=== PATIENT | female | born 1955 | race Caucasian/White ===

== ENCOUNTER 2019-06-26 09:36 | Outpatient (CLI) | payer OTHER, SELFPAY ==
--- NOTE | ~2019-06-26 | MM_ITS ---
EXAMINATION: MM screening [facility] BI w joceline HISTORY: Screening mammogram TECHNIQUE: Craniocaudal and mediolateral oblique 3-D tomosynthesis images were obtained and synthetic 2-D images were generated. CAD analysis was submitted and interpreted. COMPARISON: Comparison to multiple prior studies sequentially, with oldest reviewed study dated 12/26. BREAST PARENCHYMAL COMPOSITION: There are scattered areas of fibroglandular density. FINDINGS: There is no evidence of suspicious mass, calcification, or architectural distortion to sugg est malignancy in either breast. There has been no suspicious interval change. IMPRESSION: 1. No mammographic evidence of malignancy. 2. Recommend routine screening mammography in one year. BI-RADS Category 1: Negative Reviewed, dictated and finalized at location A.
== END 2019-06-26 09:37 | disposition home or self-care (01) ==
LOC: ANHIMG 09:38
PROVIDERS: PCP Emergency Medicine; Visit Provider Nurse Practitioner Family
DX: Z12.31 Encounter for screening mammogram for malignant neoplasm of breast (principal)
CPT/HCPCS: 77063; 77067

== ENCOUNTER → 2020-05-28 09:30 | Outpatient (CLI) | payer OTHER, SELFPAY ==
--- NOTE | ~2020-05-28 | CT_ITS ---
EXAMINATION: CT lung screening DATE: 05/28/2020 09:44 INDICATION: Personal history of nicotine dependence, prior smoker with 48 pack year history TECHNIQUE: Computed tomography (CT) of the chest was performed without intravenous contrast. The dose -length product (DLP) was 95.72 mGy-cm. Automated exposure control and iterative reconstruction techn [employer] were employed. COMPARISON: 05/09/2018 FINDINGS: Previously described clustered nodules of the left upper lobe have essentially resolved, co nsistent with infection/inflammation. There are peripheral predominantly groundglass opacities throug hout the lungs. There is no pleural effusion or pneumothorax. No pathologically enlarged thoracic lym ph nodes are identified. The heart size is normal. There is a stable 2 cm mass in the right adrenal g land, likely an adenoma. There is mild thoracic spondylosis. IMPRESSION: 1. Lung-RADS category 2S: Benign appearance or behavior. Continue annual screening with noncontrast l ow-dose chest CT in 12 months. 2. Peripheral predominantly groundglass opacities of the lungs with an appearance and distribution ty pical for COVID 19 pneumonia. Recommend clinical correlation. Reviewed, dictated and finalized at location A. CLEANER IMPRESSION: 1. Lung-RADS category 2S: Benign appearance or behavior. Continue annual screen ing with noncontrast low-dose chest CT in 12 months. 2. Peripheral predominantly groundglass opacities of the lungs with an appearan ce and distribution typical for COVID 19 pneumonia. Recommend clinical correlat ion.
== END ==
PROVIDERS: PCP Student in an Organized Health Care Education/Training Program; Visit Provider Student in an Organized Health Care Education/Training Program
DX: Z12.2 Encounter for screening for malignant neoplasm of respiratory organs (principal); F17.211 Nicotine dependence, cigarettes, in remission
CPT/HCPCS: 71271

== ENCOUNTER 2020-07-08 08:53 | Outpatient (CLI) | payer OTHER, SELFPAY ==
--- NOTE | ~2020-07-08 | MM_ITS ---
EXAMINATION: MM screening [facility] BI w joceline HISTORY: Screening mammogram TECHNIQUE: Craniocaudal and mediolateral oblique 3-D tomosynthesis images were obtained and synthetic 2-D images were generated. CAD analysis was submitted and interpreted. COMPARISON: 06/26/2019, 11/27/2017, 02/05/2016, 01/30/2015 BREAST PARENCHYMAL COMPOSITION: There are scattered areas of fibroglandular density. FINDINGS: A stable mass in the upper outer quadrant of the left breast is considered benign given the lack of interval change. There is no evidence of suspicious mass, calcification, or architectural di stortion to suggest malignancy in either breast. There has been no suspicious interval change. IMPRESSION: 1. No mammographic evidence of malignancy. 2. Recommend routine screening mammography in one year. BI-RADS Category 2: Benign finding(s). Reviewed, dictated and finalized at location A.
== END 2020-07-08 08:54 | disposition home or self-care (01) ==
LOC: ANHIMG 08:56
PROVIDERS: PCP Student in an Organized Health Care Education/Training Program; Visit Provider Student in an Organized Health Care Education/Training Program
DX: Z12.31 Encounter for screening mammogram for malignant neoplasm of breast (principal)
CPT/HCPCS: 77063; 77067

== ENCOUNTER 2020-07-30 09:06 | Outpatient (CLI) | payer OTHER, SELFPAY ==
--- NOTE | ~2020-07-30 | DEXA_ITS ---
Bone Density Report Name: Yasmin Cabral Age: 65 Sex: Female Ethnicity: White Date of : 1955 Indication: osteopenia; hysterectomy; Referring Provider: Shadi, Raul Study: Bone densitometry was performed. Exam Date: July 30, 2020 Accession number: [id number] Bone Density: Region BMD T-score Z-score Classification AP Spine (L1-L4) 0.942 -1.0 0.8 Normal Femoral Neck (Left) 0.623 -2.0 -0.5 Osteopenia Total Hip (Left) 0.798 -1.2 0.1 Osteopenia Total Hip Bilateral Avg 0.775 -1.4 -0.1 Osteopenia Femoral Neck (Right) 0.617 -2.1 -0.6 Osteopenia Total Hip (Right) 0.752 -1.6 -0.3 Osteopenia World Health Organization criteria for BMD impression classify patients as: Normal (T-score at or above -1.0), Osteopenia (T-score between -1.0 and -2.5), or Osteoporosis (T-score at or below -2.5). 10-year Fracture Risk(1): Major Osteoporotic Fracture 11% Hip Fracture 1.6% Reported Risk Factors: [place] (), Neck BMD=0.617, BMI=28.6 (1) FRAX(R) Version 3.08. Fracture probability calculated for an untreated patient. Fracture probability may be lower if the patient has received treatment. Previous Exams: Region Exam Age BMD T-score BMD Change BMD Change Date g/cm2 vs Baseline vs Previous AP Spine(L1-L4) 07/30/2020 65 0.942 -1.0 0.003(0.3%)# 0.031(3.4%)* 11/27/2017 62 0.911 -1.2 -0.028(-3.0%)# 0.068(8.0%)* 01/30/2015 59 0.843 -1.9 -0.095(-10.2%) -0.050(-5.6%)# 03/25/2009 53 0.893 -1.4 -0.045(-4.8%)* -0.045(-4.8%)* 01/31/2007 51 0.938 -1.0 Total Hip(Left) 07/30/2020 65 0.798 -1.2 -0.053(-6.2%)# -0.033(-3.9%)* 11/27/2017 62 0.830 -0.9 -0.020(-2.4%)# 0.064(8.3%)* 01/30/2015 59 0.766 -1.4 -0.084(-9.9%)# -0.028(-3.5%)# 03/25/2009 53 0.794 -1.2 -0.056(-6.6%)* -0.056(-6.6%)* 01/31/2007 51 0.850 -0.8 Total Hip(Right) 07/30/2020 65 0.752 -1.6 -0.019(-2.5%)# -0.016(-2.1%) 11/27/2017 62 0.768 -1.4 -0.003(-0.4%)# 0.066(9.4%)* 01/30/2015 59 0.702 -2.0 -0.069(-8.9%)# -0.049(-6.5%)# 03/25/2009 53 0.751 -1.6 -0.020(-2.6%) -0.020(-2.6%) 01/31/2007 51 0.771 -1.4 *Denotes significance at 95% confidence level, LSC for AP Spine = 0.022 g/cm2, LSC for Total Hip = 0.027 g/cm2 Clinical Information Provided by Patient: Has the following medical conditions: Hysterectomy Patient maximum height was 63 Menopause Age: 50 No regular weight bearing exercise Drinks caffeinated beverages Onset of menses at age 12 Number of
== END 2020-07-30 09:07 | disposition home or self-care (01) ==
LOC: ANHIMG 09:08
PROVIDERS: PCP Student in an Organized Health Care Education/Training Program; Visit Provider Student in an Organized Health Care Education/Training Program
DX: Z78.0 Asymptomatic menopausal state (principal); M85.851 Other specified disorders of bone density and structure, right thigh; M85.852 Other specified disorders of bone density and structure, left thigh
CPT/HCPCS: 77080

== ENCOUNTER → 2021-08-07 10:51 | Outpatient (CLI) | payer OTHER, SELFPAY ==
--- NOTE | ~2021-08-07 | CT_ITS ---
EXAMINATION: CT lung screening DATE: 08/07/2021 11:07 INDICATION: Personal history of nicotine dependence, prior smoker with 40 pack year history TECHNIQUE: Computed tomography (CT) of the chest was performed without intravenous contrast. The dose -length product (DLP) was 114.32 mGy-cm. Automated exposure control and iterative reconstruction tech [employer] were employed. COMPARISON: 05/28/2020 FINDINGS: There are a few tiny scattered pulmonary nodules measuring up to 2 mm. Previously described groundglass opacities have resolved. The lungs are free of focal airspace opacities. There is no ple ural effusion or pneumothorax. No pathologically enlarged thoracic lymph nodes are identified. The he art size is normal. A stable 2 cm mass of the right adrenal gland is consistent with an adenoma. Ther e is mild thoracic spondylosis. IMPRESSION: 1. Lung-RADS category 2: Benign appearance or behavior. Continue annual screening with noncontrast lo w-dose chest CT in 12 months. Reviewed, dictated and finalized at location F. IMPRESSION: 1. Lung-RADS category 2: Benign appearance or behavior. Continue annual screeni ng with noncontrast low-dose chest CT in 12 months.
== END ==
PROVIDERS: PCP Student in an Organized Health Care Education/Training Program; Visit Provider Student in an Organized Health Care Education/Training Program
DX: Z12.2 Encounter for screening for malignant neoplasm of respiratory organs (principal); F17.210 Nicotine dependence, cigarettes, uncomplicated
CPT/HCPCS: 71271

== ENCOUNTER 2021-09-16 10:08 | Outpatient (CLI) | payer OTHER, SELFPAY ==
--- NOTE | ~2021-09-16 | MM_ITS ---
EXAMINATION: MM screening [facility] BI w joceline HISTORY: Screening mammogram TECHNIQUE: Craniocaudal and mediolateral oblique 3-D tomosynthesis images were obtained and synthetic 2-D images were generated. CAD analysis was submitted and interpreted. COMPARISON: 07/08/2020, 06/26/2019, 11/27/2017 BREAST PARENCHYMAL COMPOSITION: There are scattered areas of fibroglandular density. FINDINGS: A stable, benign left breast mass is again noted. There is no suspicious mass, calcificatio n, or architectural distortion to suggest malignancy in either breast. There has been no suspicious i nterval change. IMPRESSION: 1. No mammographic evidence of malignancy. 2. Recommend routine screening mammography in one year. BI-RADS Category 2: Benign finding(s). Reviewed, dictated and finalized at location A.
== END 2021-09-16 10:09 | disposition home or self-care (01) ==
PROVIDERS: PCP Student in an Organized Health Care Education/Training Program; Visit Provider Student in an Organized Health Care Education/Training Program
DX: Z12.31 Encounter for screening mammogram for malignant neoplasm of breast (principal)
CPT/HCPCS: 77063; 77067

== ENCOUNTER → 2022-08-10 11:18 | Outpatient (CLI) | payer OTHER, SELFPAY ==
--- NOTE | ~2022-08-10 | CT_ITS ---
CT Scan of the Chest without Contrast: Clinical Indication: Lung cancer screening, nicotine dependence Technique: Contiguous sections were acquired throughout the chest without intravenous contrast. Dose reduction technique was used on this scan by utilizing automated exposure control and iterative recon struction technique. The dose-length product (DLP) was 76.26 mGy-cm. COMPARISON: 07/30/2021, 05/28/2020, 05/09/2018 Findings: There is no evidence of any significant mediastinal, hilar or axillary lymphadenopathy. The mediastin al soft tissues appear normal. There is no evidence of pleural or pericardial effusion. Stable 3 mm left upper lobe pulmonary nodule noted (axial image 52). No other significant pulmonary n odule identified. Images through the upper abdomen reveal stable low-density right adrenal nodule, consistent with radha hillary, measuring 2.3 cm in diameter.. Impression: Lung RADS 2: Benign appearance. 12 month follow-up screening CT advised. Stable right adrenal adenoma. Reviewed, dictated and finalized at location . Impression: Lung RADS 2: Benign appearance. 12 month follow-up screening CT advised. Stable right adrenal adenoma.
== END ==
PROVIDERS: PCP Student in an Organized Health Care Education/Training Program; Visit Provider Student in an Organized Health Care Education/Training Program
DX: D35.01 Benign neoplasm of right adrenal gland (principal); F17.211 Nicotine dependence, cigarettes, in remission; Z12.2 Encounter for screening for malignant neoplasm of respiratory organs
CPT/HCPCS: 71271

== ENCOUNTER 2023-01-01 10:23 | Outpatient (CLI) | payer OTHER, SELFPAY ==
--- NOTE | ~2023-01-01 | MM_ITS ---
EXAMINATION: MM screening [facility] BI w joceline HISTORY: Screening TECHNIQUE: Craniocaudal and mediolateral oblique 3-D tomosynthesis images were obtained and synthetic 2-D images were generated. CAD analysis was submitted and interpreted. COMPARISON: Comparison to multiple prior studies sequentially, with oldest reviewed study dated 01/11. BREAST PARENCHYMAL COMPOSITION: Breast composed of scattered areas of fibroglandular density FINDINGS: There is no evidence of suspicious mass, calcification, or architectural distortion to sugg est malignancy in either breast. There has been no suspicious interval change. IMPRESSION: 1. No mammographic evidence of malignancy. 2. Recommend routine screening mammography in one year. BI-RADS Category 1: Negative Reviewed, dictated and finalized at location A.
--- NOTE | ~2023-01-01 | DEXA_ITS ---
Bone Density Report Name: ALEX VARGAS Age: 67 Sex: Female Ethnicity: White Date of : 1955 Indication: osteopenia; height loss; hysterectomy; postmenopausal Referring Provider: NORM, DARA Study: Bone densitometry was performed. Exam Date: January 01, 2023 Accession number: [id number] Bone Density: Region BMD T-score Z-score Classification AP Spine(L1-L4) 0.966 -0.7 1.2 Normal Femoral Neck (Left) 0.670 -1.6 0.0 Osteopenia Total Hip (Left) 0.814 -1.1 0.3 Osteopenia Femoral Neck (Right) 0.605 -2.2 -0.5 Osteopenia Total Hip (Right) 0.750 -1.6 -0.2 Osteopenia Total Hip Mean 0.782 -1.4 0.1 Osteopenia World Health Organization criteria for BMD impression classify patients as: Normal (T-score at or above -1.0), Osteopenia (T-score between -1.0 and -2.5), or Osteoporosis (T-score at or below -2.5). 10-year Fracture Risk(1): Major Osteoporotic Fracture 12% Hip Fracture 2.2% Reported Risk Factors: [place] (), Neck BMD=0.605, BMI=25.5 (1) FRAX(R) Version 3.08. Fracture probability calculated for an untreated patient. Fracture probability may be lower if the patient has received treatment. Previous Exams: Region Exam Age BMD T-score BMD Change BMD Change Date g/cm2 vs Baseline vs Previous AP Spine (L1-L4) 01/01/2023 67 0.966 -0.7 0.123 (14.6%)* 0.025 (2.6%)* 07/30/2020 65 0.942 -1.0 0.099 (11.7%)* 0.031 (3.4%)* 11/27/2017 62 0.911 -1.2 0.068 (8.0%)* 0.068 (8.0%)* 01/30/2015 59 0.843 -1.9 Total Hip(Left) 01/01/2023 67 0.814 -1.1 0.047 (6.2%)* 0.016 (2.0%) 07/30/2020 65 0.798 -1.2 0.031 (4.1%)* -0.033 (-3.9%) 11/27/2017 62 0.830 -0.9 0.064 (8.3%)* 0.064 (8.3%)* 01/30/2015 59 0.766 -1.4 Total Hip(Right) 01/01/2023 67 0.750 -1.6 0.048 (6.8%)* -0.002 (-0.3%) 07/30/2020 65 0.752 -1.6 0.050 (7.1%)* -0.016 (-2.1%) 11/27/2017 62 0.768 -1.4 0.066 (9.4%)* 0.066 (9.4%)* 01/30/2015 59 0.702 -2.0 *Denotes significance at 95% confidence level, LSC for AP Spine = 0.022 g/cm2, LSC for Total Hip = 0.027 g/cm2 Clinical Information Provided by Patient: Has used the following medications: Vitamin D Has the following medical conditions: Hysterectomy Patient maximum height was 62 Menopause Age: 50 No regular weight bearing exercise Does not regularly consume dairy products Onset of menses at age 13 Number of children 4 Impress
== END 2023-01-01 10:24 | disposition home or self-care (01) ==
LOC: ANHIMG 10:27
PROVIDERS: PCP Student in an Organized Health Care Education/Training Program; Visit Provider Student in an Organized Health Care Education/Training Program
DX: Z12.31 Encounter for screening mammogram for malignant neoplasm of breast (principal); Z78.0 Asymptomatic menopausal state; M85.852 Other specified disorders of bone density and structure, left thigh; M85.851 Other specified disorders of bone density and structure, right thigh
CPT/HCPCS: 77063; 77067; 77080

== ENCOUNTER 2023-08-19 09:46 | Outpatient (CLI) | payer OTHER, SELFPAY ==
--- NOTE | ~2023-08-19 | CT_ITS ---
CT Scan of the Chest without Contrast: Clinical Indication: Lung cancer screening, nicotine dependence Technique: Contiguous sections were acquired throughout the chest without intravenous contrast. Dose reduction technique was used on this scan by utilizing automated exposure control and iterative recon struction technique. The dose-length product (DLP) was 92.85 mGy-cm. COMPARISON: 08/10/2022 Findings: There is no evidence of any significant mediastinal, hilar or axillary lymphadenopathy. The mediastin al soft tissues appear normal. There is no evidence of pleural or pericardial effusion. Stable 3 mm left upper lobe pulmonary nodule noted (axial image 52). Images through the upper abdomen reveal stable 2.4 cm low-density right adrenal nodule, compatible wi th adenoma.. Impression: Lung RADS 2: Benign appearance. 12 month follow-up screening CT advised. Reviewed, dictated and finalized at location . Impression: Lung RADS 2: Benign appearance. 12 month follow-up screening CT advised.
== END 2023-08-19 09:47 ==
LOC: MICIMG 09:47
PROVIDERS: PCP Student in an Organized Health Care Education/Training Program; Visit Provider Student in an Organized Health Care Education/Training Program
DX: Z12.2 Encounter for screening for malignant neoplasm of respiratory organs (principal); Z87.891 Personal history of nicotine dependence
CPT/HCPCS: 71271

== ENCOUNTER 2024-10-02 10:08 | Outpatient (CLI) | payer OTHER, SELFPAY ==
--- NOTE | ~2024-10-02 | CT_ITS ---
CT Scan of the Chest without Contrast: Clinical Indication: Lung cancer screening, nicotine dependence Technique: Contiguous sections were acquired throughout the chest without intravenous contrast. Dose reduction technique was used on this scan by utilizing automated exposure control and iterative recon struction technique. The dose-length product (DLP) was 100.42 mGy-cm. COMPARISON: 08/19/2023 Findings: There is no evidence of any significant mediastinal, hilar or axillary lymphadenopathy. The mediastin al soft tissues appear normal. There is no evidence of pleural or pericardial effusion. Stable 5 mm left upper lobe pulmonary nodule. Images through the upper abdomen reveal stable large right adrenal nodule, compatible with adenoma. Impression: Lung RADS 2: Benign appearance. 12 month follow-up screening CT advised. Reviewed, dictated and finalized at location . Impression: Lung RADS 2: Benign appearance. 12 month follow-up screening CT advised.
== END 2024-10-02 10:09 | disposition home or self-care (01) ==
LOC: MICIMG 10:09
PROVIDERS: PCP Obstetrics & Gynecology Gynecology; Visit Provider Student in an Organized Health Care Education/Training Program
DX: Z12.2 Encounter for screening for malignant neoplasm of respiratory organs (principal); F17.210 Nicotine dependence, cigarettes, uncomplicated; Z12.31 Encounter for screening mammogram for malignant neoplasm of breast
CPT/HCPCS: 71271

== ENCOUNTER 2025-03-22 15:12 | Outpatient (CLI) | payer OTHER, SELFPAY ==
--- NOTE | ~2025-03-22 | MM_ITS ---
EXAMINATION: MM screening soha BI w joceline HISTORY: Screening. TECHNIQUE: Craniocaudal and mediolateral oblique 3-D tomosynthesis images were obtained and synthetic 2-D images were generated. CAD analysis was submitted and interpreted. COMPARISON: 2022, 2020, and 2017 BREAST PARENCHYMAL COMPOSITION: Not Dense: There are scattered areas of fibroglandular FINDINGS: No suspicious masses are seen. There are no suspicious calcifications. No unexplained architectural distortion is seen. There are no skin or nipple abnormalities identified. There is no adenopathy seen on the images submitted. IMPRESSION: No mammographic evidence to suggest malignancy is seen. The patient may return to screening mammography as per ACR guidelines. BI-RADS 1 - Negative. Reviewed, dictated and finalized at location C. [facility] RECOVERY OPERATOR
--- OUTSIDE RECORDS SUMMARY | 2025-03-22 18:12 | XMS_ITS | Clinical Summary ---
Author Organization [facility] Address [address] [place] [address] Care Team Providers Care Court Reporter Name Role Phone Gail Sharpe RN Unavailable Unavailable Source Comments [facility],non-owned Affiliates and Associated Physician Practices is amultiple site organization consisting of ambulatory clinics and hospital sitesin [place], [place], [place] and [place]. This disclosure is being madepursuant to the Care Everywhere program and may not contain all information available regarding this patient. Last updated 17.[facility] [employer] Allergies Active Allergy Reactions Criticality Noted Date Comments Nitrofurantoin Rash,Fever,Headache, Othe r Medium 01/15/2017 Other reaction(s): Headache, COFFMAN, fever Sulfa Drugs Rash Medium 01/15/2017 Medications * Be aware that medications may not be up to date on this document. Alwaysverify current medications with the patient. potassium chloride (KLOR-CON) 20 MEQ tablet Take 20 mEq by mouth once daily Active atenolol-chlort halidone (TENORETIC 50) 50-25 MG tablet Take 1 tablet by mouth once daily Active vitamin D3-cholecalcife rol (CHOLECACIFEROL ) 1000 UNITS tabletIndicatio ns:three times monthly Take 50,000 Units by mouth every 30 days Reasons: three times monthly Active alendronate (FOSAMAX) 70 MG tablet Take 70 mg by mouth every 7 days before meal Take in morning with full glass of water on empty stomach and remain upright for 30 min Active oxyCODONE-aceta minophen (PERCOCET) 5-325 MG tablet Take 1 tablet by mouth every 6 hours as needed 45 tablet 7 Active Additional Information Patient not taking.Reported on 11/08/2017 docusate sodium (COLACE) 100 MG capsule Take 1 capsule by mouth 2 times daily 28 capsule 7 Active Additional Information Patient not taking.Reported on 11/08/2017 polyethylene glycol 3350 (MIRALAX) packet Take 17 g by mouth once daily as needed for Constipation 14 packet 7 Active Additional Information Patient not taking.Reported on 11/08/2017 ibuprofen (MOTRIN) 600 MG tablet Take 1 tablet by mouth every 6 hours as needed for Pain 60 tablet 7 Active Additional Information Patient not taking.Reported on 11/08/2017 vitamin D (CHOLECACIFEROL ) 5000 UNITS capsule Take by mouth. 7 Active Potassium Chloride (KLOR-CON) 25 MEQ Take by mouth. 7 Active atenolol-chlort halidone (TENORETIC 50) 50-25 MG tablet Active Ergocalciferol (VITAMIN D2) 2000 UNITS Take 5,000 Units by mouth. 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 Gender Identity Female 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[employer] Sexual Orientation Not on file Last Filed Vital Signs Vital Sign Reading Time Taken Comments Blood Pressure 120/78 11/08/2017 9:28 AM CDT Pulse 79 03/26/2017 1:40 PM [employer] Temperature 36.7 C (98.1 F) 03/26/2017 1:40 PM [employer] Respiratory Rate 16 03/26/2017 1:40 PM [employer] Oxygen Saturation 96% 03/26/2017 1:40 PM [employer]ARM[employer] Inhaled Oxygen Concentration - - Weight 66.6 kg (146 lb 12.8 oz) 11/08/2017 9:28 AM CDT Height 157.5 cm (5' 2) 11/08/2017 9:28 AM CDT Body Mass Index 26.85 11/08/2017 9:28 AM CDT Plan of Treatment Health Maintenance Due Date Last Done Comments BONE DENSITY TESTING 1955 COLOGUARD (AGES 45-75) - COL ON CA SCREENING 1955 COLON MONITORING 1955 COLONOSCOPY - COLON CA SCREENING 1955 CT COLONOGRAPHY - COLON CA SCREENING 1955 Colorectal Cancer Screening 1955 FIT - COLON CA SCREENING 1955 FLEX SIG - COLON CA SCREENING 1955 MEDICARE AWV 12 MONTHS 1955 HEPATITIS C SCREENING 03/26/1973 DTAP/TDAP/TD VACCINES (1 - Tdap) 1974 PNEUMOCOCCAL VACCINE 50+ (1 of 2 - PCV) 1974 ZOSTER VACCINE (1 of 2) 2005 SCREENING FOR DIABETES 11/08/2017 DEPRESSION SCREENING 04/12/2024 COVID-19 VACCINE (3 - 2024-2 6 season) 2024 05/04/2020, 04/13/2020 INFLUENZA VACCINE (#1) 2024 MAMMOGRAM 01/01/2025 01/01/2023 LIPID TESTING 07/25/2028 07/26/2023, 07/21/2022 Respiratory Syncytial Virus (RSV) Vaccine Pt: or over 60 yrs (1 - 1-dose 75+ series) 2030 HEPATITIS B VACCINE Aged Out No longe r eligible based on patient's age to complete this topic HIB VACCINE Aged Out No longer eligi ble based on patient's age to complete this topic HPV VACCINE Aged Out No longer eligi ble based on patient's age to complete this topic MENINGOCOCCAL (Group B) VACCINE SHARED DECISION-MAKING Aged Out No longer eligible based on patient's age to complete this topic MENINGOCOCCAL GROUPS A/C/Y/W VACCINE Aged Out No longer eligible b ased on patient's age to complete this topic Medical Devices Implanted Type Area Brake Tester Device Identifier Shelf Expiration Date Model / Serial / Lot Mesh Srg Upsylon 35.4cm [id number] 2.8sq Implanted:Qty: 1 on 03/25/2017 by Rita Cole MD at [facility] N/A: [facility] 06/09/2019 [id number] / / [id number] Insurance [facility] MEDICARE SELF PAY NO INSURANCE Member Subscriber Plan / Payer (Ef fective for All Dates) Name:Alex Cabral Natalie Member ID:Not on file Relation to Subscriber:Not on file Name:ALEX CABRAL Natalie Subscriber ID:Not on file (Home) Address: [address] [place] [address] Payer ID:Not on file Group ID:Not on file Type:Self Pay Address: [place], [place] [facility] Advance Directives * Full Code (Latest Code Status on File) Date Activated Date Inactivated Comments 03/25/2017 4:10 PM 03/26/2017 6:[address] Reporter Relationship Specialty Start Date End Date Gail Sharpe, LÁZARO Registered Nurse 03/25/17
--- OUTSIDE RECORDS SUMMARY | 2025-03-22 18:13 | XMS_ITS | Encounter Summary ---
Author Organization [facility] Address [address] [place] [id number] Care Team Providers Care Supervising Broker Name Role Phone Raul Hsu DO Primary Care Provider + Encounter Details Date Type Department Care Team (Latest Contact Info) Description 02/28/2025 Results Follow-Up [facility] Family & Internal Medicine [facility] [address] [place] [address] Raul Hsu DO [address] [place], [place] [id number] HEMOGLOBIN, GLYCOSYLATED Social History Tobacco Use Types Packs/Day Years Used Date Smoking Tobacco: Former Cigarettes 1 48 1 970 - 04/12/2017 Passive Smoke Exposure: Current Smokeless Tobacco: Never Alcohol Use Standard Drinks/Week Comments Never 0 (1 standard drink = 0.6 oz pur e alcohol) AUDIT-C Answer Date Recorded Q1: How often do you have a drink containing alc ohol? 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 Not on file Not on file documented as of this encounter Plan of Treatment Upcoming Encounters Date Type Department Care Team (Late Contact Info) Description 06/20/2025 9:20 AM CDT Office Visit [facility] Family & Internal Medicine - [place] [address] [place] [address] Raul Hsu DO [address] [place] [id number] documented as of this encounter Visit Diagnoses Not on filedocumented in this encounter Additional Health Concerns Assessment Noted Time PHQ-9 Depression Total Score: 5 02/07/20 24 11:51 AM CDT documented as of this encounter Care Teams Supervising Broker Relationship Specialty Start Date End Date Raul Hsu DO [address] [place] [id number] PCP - General FAMILY PRACTICE 05/21/20 documented as of this encounter
--- OUTSIDE RECORDS SUMMARY | 2025-03-22 18:14 | XMS_ITS | Clinical Summary ---
Author Organization [facility] Address [address] [place] [address] Care Team Providers Care Supervisor Of Operations Name Role Phone Raul Hsu DO Primary Care Provider + Allergies Active Allergy Reactions Criticality Noted Date Comments Nitrofurantoin Other (see comment),Headache,Rash Medium 01/15/2017 Other reaction(s): Headache, COFFMAN, fever Sulfa Antibiotics Rash Medium 01/15/2017 Medications vitamin C (ASCORBIC ACID) 1000 MG tablet Take 1 tablet (1,000 mg total) by mouth daily. Active Glucose Blood (FREESTYLE LITE) test stripIndication s:Type 2 diabetes mellitus with other circulatory complication, without long-term current use of insulin ([facility] HHS/HCC) 1 strip by Other route daily. Use as instructed 100 strip 3 05/10/19 25 Active Blood Glucose Monitoring Suppl (FREESTYLE LITE) w/Device KitIndications: Type 2 diabetes mellitus with other circulatory complication, without long-term current use of insulin ([facility]/HCC HHS/HCC) 1 Application by Does not apply route daily. Check blood sugar once daily while fasting and otherwise as needed 1 kit 06/07/19 25 Active Lancets (FREESTYLE) lancetsIndicati ons:Type 2 diabetes mellitus with other circulatory complication, without long-term current use of insulin ([facility]/HCC HHS/HCC) 1 each by Other route as needed. Use as instructed 100 each 3 08/04/19 25 Active atenolol-chlort halidone (TENORETIC) 50-25 MG tabletIndicatio ns:Hypertension associated with type 2 diabetes mellitus ([facility] HHS/HCC) Take 1 tablet by mouth twice daily 180 tablet 01/16/20 25 Active potassium chloride CR (K-TAB) 20 MEQ tabletIndicatio ns:Hypertension associated with type 2 diabetes mellitus (CMS/HCC HHS/HCC) Take 1 tablet by mouth once daily 90 tablet 1 01/24/20 25 Active Microlet Lancets MiscIndications :Type 2 diabetes mellitus without complication, without long-term current use of insulin (CMS/HCC HHS/HCC) USE 1 LANCET TO CHECK GLUCOSE ONCE DAILY 100 each 1 01/24/20 25 Active FLUoxetine (PROZAC) 40 MG capsuleIndicati ons:Current mild episode of major depressive disorder without prior episode Take 2 capsules by mouth once daily 180 capsule 1 03/13/20 25 Active FARXIGA 5 MG TabIndications: Type 2 diabetes mellitus with other circulatory complication, without long-term current use of insulin (CMS/HCC HHS/HCC) Take 1 tablet by mouth once daily 30 tablet 3 03/16/20 25 Active lisinopril (PRINIVIL) 2.5 MG tabletIndicatio ns:Hypertension associated with type 2 diabetes mellitus (CMS/HCC HHS/HCC) Take 1 tablet by mouth once daily 90 tablet 1 03/20/20 25 Active metFORMIN ER (GLUCOPHAGE-XR) 500 MG 24 hr tabletIndicatio ns:Type 2 diabetes mellitus without complication, without long-term current use of insulin (CMS/HCC HHS/HCC) TAKE 4 TABLETS BY MOUTH ONCE DAILY WITH BREAKFAST 360 tablet 1 03/20/20 25 Active simvastatin (ZOCOR) 40 MG tabletIndicatio ns:Hyperlipidem ia associated with type 2 diabetes mellitus (CMS/HCC HHS/HCC) TAKE 1 TABLET BY MOUTH NIGHTLY AT BEDTIME 90 tablet 1 03/20/20 25 Active FLUoxetine (PROZAC) 40 MG capsuleIndicati ons:Current mild episode of major depressive disorder without prior episode Take 2 capsules (80 mg total) by mouth daily. 180 capsule 3 02/07/20 24 025 Discontinued lisinopril (PRINIVIL) 2.5 MG tabletIndicatio ns:Hypertension associated with type 2 diabetes mellitus (CMS/HCC HHS/HCC) Take 1 tablet by mouth once daily 90 tablet 12/19/19 25 025 Discontinued metFORMIN ER (GLUCOPHAGE-XR) 500 MG 24 hr tabletIndicatio ns:Type 2 diabetes mellitus without complication, without long-term current use of insulin ([facility]) TAKE 4 TABLETS BY MOUTH ONCE DAILY WITH BREAKFAST 360 tablet 12/23/19 25 025 Discontinued simvastatin (ZOCOR) 40 MG tabletIndicatio ns:Hyperlipidem ia associated with type 2 diabetes mellitus ([facility]) TAKE 1 TABLET BY MOUTH NIGHTLY AT BEDTIME 90 tablet 12/23/19 25 025 Discontinued Dapagliflozin Propanediol 5 MG TabIndications: Type 2 diabetes mellitus with other circulatory complication, without long-term current use of insulin ([facility]) Take 1 tablet by mouth once daily 30 tablet 02/08/20 25 025 Discontinued Active Problems Problem Noted Date Diagnosed Date Adrenal incidentaloma 07/21/2022 Diabetes 05/21/2020 Hyperlipidemia 05/21/2020 Osteopenia 05/21/2020 Hypertension associated with type 2 diabetes millicent litus 05/21/2020 Vitamin D deficiency 05/21/2020 Anxiety 05/21/2020 Current mild episode of stephen r depressive disorder without prior episode 05/21/2020 Hyperlipidemia associated with type 2 diabetes m ellitus 05/21/2020 Midline cystocele 03/25/2017 Resolved Problems Problem Noted Date Diagnosed Date Resolved Date Osteoporosis 05/21/2020 05/21/2020 Encounters Date Type Department Care Team Description 02/28/2025 Results Follow-Up [facility] Family & Internal Medicine [address] [phone] Raul Hsu P, DO HEMOGLOBIN, GLYCOSYLATED 02/20/2025 10:20 AM CORRECTIONAL MEDICINE PHYSICIAN Office Visit [facility] Family & Internal Medicine [address] [phone] Raul Hsu P, DO Diabetes (Routine follow up. No questions or concerns at this time.) 02/20/2025 Travel from Last 3 Months Immunizations Immunization Administration Dates Next Due Influenza Adult (Generic) 07/15/2021(Deferred: P atient Refused) PFIZER COVID-19 (ORIGINAL FO RMULATION, PURPLE CAP) mRNA, LNP-S, PF, 30 MCG/0.3 ML DOSE 05/04/2020,04/13/2020 Pneumococcal (Pneumovax 23) 01/20/2022 Pneumococcal (Prevnar 13) 11/28/2020 Tdap (Adacel) 07/22/2021 Family History Medical History Relation Comments Diabetes Brother 2 Lung Cancer Father Diabetes Mother Heart Attack Mother Diabetes Sister 1 Diabetes Sister 2 Diabetes Sister 3 Relation Status Comments Brother 1 Brother 2 Alive Father Mother Alive Sister 1 Alive Sister 2 Alive Sister 3 Alive Social History Tobacco Use Types Packs/Day Years Used Date Smoking Tobacco: Former Cigarettes 1 48 1 970 - 04/12/2017 Passive Smoke Exposure: Current Smokeless Tobacco: Never Tobacco Cessation:Counseling Given: Yes Alcohol Use Standard Drinks/Week Comments Never 0 [...] Sex Assigned at Female 05/09/2024 9:37 AM CORRECTIONAL MEDICINE PHYSICIAN Legal Sex Female 9:06 AM CORRECTIONAL MEDICINE PHYSICIAN Gender Identity Female 05/09/2024 9:37 AM CORRECTIONAL MEDICINE PHYSICIAN Sexual Orientation Not on file 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 Not on file Not on file Not on file Last Filed Vital Signs Vital Sign Reading Time Taken Comments Blood Pressure 112/74 02/20/2025 10:36 AM CORRECTIONAL MEDICINE PHYSICIAN Pulse 70 02/20/2025 10:36 AM CORRECTIONAL MEDICINE PHYSICIAN Temperature 36.3 C (97.3 F) 02/20/2025 10:36 AM CORRECTIONAL MEDICINE PHYSICIAN Respiratory Rate 16 02/20/2025 10:36 AM CORRECTIONAL MEDICINE PHYSICIAN Oxygen Saturation 97% 02/20/2025 10:36 AM CORRECTIONAL MEDICINE PHYSICIAN Inhaled Oxygen Concentration - - Weight 74.6 kg (164 lb 6.4 oz) 02/20/2025 10:36 AM CORRECTIONAL MEDICINE PHYSICIAN Height 157.5 cm (5' 2) 02/20/2025 10:36 AM CORRECTIONAL MEDICINE PHYSICIAN Body Mass Index 30.07 02/20/2025 10:36 AM CORRECTIONAL MEDICINE PHYSICIAN Plan of Treatment Upcoming Encounters Date Type Department Care Team (Late st Contact Info) Description 06/20/2025 9:20 AM CDT Office Visit [facility] Family [facility] - [place] [id number] [place] [phone] Raul Hsu, [address] [place] [id number] Health Maintenance Due Date Last Done Comments Lung Cancer Screening 2005 Annual Medicare Wellness Visit 2020 Dexa Scan (General) 01/01/2025 01/01/2023, 01/01/2023, 07/30/2020, Additional history exists Mammogram Screening 03/22/2025 01/01/2023, 01/01/2023, 09/16/2021, Additional history exists Postponed from 01/02/2024 (Future Appointment) Kidney Health Evaluation 08/08/2025 08/08/2024 Lipid Panel 08/08/2025 08/08/2024, 07/11, 07/21/2022, Additional history exists Diabetes: Retinopathy Eye Exam 08/19/2025 08/20/2023, 02/20/2020 Hemoglobin A1C 08/20/2025 02/20/2025, 08/0 09/2024, 08/15/2024, Additional history exists COVID-19 Vaccine ( season) 2026 05/04/2020, 04/13/2020 Postponed from 12/11/2024 (Patient Refused) Influenza Adult (#1) 2026 Postpon ed from 01/10/2025 (Patient Refused) Zoster Vaccines (1 of 2) 02/20/2026 Pos tponed from 2005 (Patient Refused) Colorectal Cancer Screening Colonoscopy (10 Years) 05/16/2029 05/16/2024, 04/15/2015 RSV Immunization or 60+ Years (1 - 1-dose 75+ series) 2030 DTaP, Tdap and Td Vaccines (2 - Td or Tdap) 07/23/2031 07/22/2021 Hepatitis C Completed 05/22/2020 Pneumococcal Vaccine: 50+ Years Completed 01/20/2022, 11/28/2020 PHQ-2 (Physician [place]) Completed 05/09/2024 Hepatitis A Vaccines Aged Out No long er eligible based on patient's age to complete this topic Meningococcal B Vaccine Aged Out No l onger eligible based on patient's age to complete this topic Meningococcal Vaccine Aged Out No miguel symone eligible based on patient's age to complete this topic RSV Immunizations Under 20 Months Aged Out No longer eligible based on patient's age to complete this topic Procedures Procedure Name Priority Date/Time Associated Diagnosis Comments COLLECT.CAPILLARY (FNGR,HEEL,EAR) Routine 02/20/2025 10:27 AM CORRECTIONAL MEDICINE PHYSICIAN Type 2 diabetes mellitus with other circulatory complication, without long-term current use of insulin ([facility] HHS/HCC) HEMOGLOBIN, GLYCOSYLATED Routine 02/20/2025 Type 2 diabetes mellitus with other circulatory complication, without long-term current use of insulin ([facility] HHS/HCC) LIPID PANEL Routine 08/08/2024 9:32 AM CDT Type 2 diabetes mellitus with other circulatory complication, without long-term current use of insulin ([facility] HHS/HCC) Hyperlipidemia associated with type 2 diabetes mellitus ([facility]/HCC HHS/HCC) Hypertension associated with type 2 diabetes mellitus ([facility]/HCC HHS/HCC) COLONOSCOPY GENERIC (SCAN ORDER) 05/16/2024 DIABETIC RETINOPATHY EXAM (NEGATIVE)(SCAN ORDER) Routine 08/20/2023 BONE DENSITY GENERIC (SCAN ORDER) 01/01/2023 MAMMOGRAM GENERIC (SCAN ORDER) 01/01/2023 HEPATITIS C ANTIBODY W/RFX TO HCV RNA Routine 05/22/2020 9:18 AM CORRECTIONAL MEDICINE PHYSICIAN from Last 3 Months or Most Recently Relevant to Health Maintenance Results * HEMOGLOBIN, GLYCOSYLATED (02/20/2025) HGB A1C 7.7 % [facility] BLOOD VENOUS BLOOD SPECIMEN / Unknown 02/20/2025 us Raul Hsu DO LABORATORY Edited R esult - Final [facility] [address] [place] [address], [place] * LIPID PANEL (08/08/2024 9:32 AM CDT) CHOLESTEROL 132 <200 MG/DL 08/08/2024 4:04 PM CDT [facility] TRIGLYCERIDES 72 <150 MG/DL 08/08/2024 4:04 PM CDT [facility] HDL 54 >40 MG/DL 08/08/2024 4:04 PM CDT [facility] LDL-C 64 <100 MG/DL 08/08/2024 4:04 PM CDT [facility] VLDL CALCULATION 14 5 - 28 MG/DL 08/08/2024 4:04 PM CDT [facility] CHOL/HDL RATIO 2.4 0.0 - 4.0 08/08/2024 4:04 PM CDT [facility] LDL/HDL 1.2 0.41 - 2.13 08/08/2024 4:04 PM CDT [facility] NON HDL CHOLESTEROL 78 <140 MG/DL 08/08/2024 4:04 PM CDT [facility] 08/08/2024 9:32 AM CDT Raul Hsu DO LABORATORY Final Re sult [facility] [address] [place] [address], * COLONOSCOPY GENERIC (SCAN ORDER) (05/16/2024) 05/16/2024 [facility] Scanned SCANNING Final Resu lt * DIABETIC RETINOPATHY EXAM (NEGATIVE) (08/20/2023) [facility] Scanned SCANNING Final Resu lt [facility] * BONE DENSITY GENERIC (01/01/2023) Anatomical Region Laterality Modality Other 01/01/2023 [facility] Scanned SCANNING Final Resu lt * MAMMOGRAM GENERIC (01/01/2023) Anatomical Region Laterality Modality Other 01/01/2023 [facility] Scanned SCANNING Final Resu lt * HEPATITIS C ANTIBODY W/RFX TO HCV RNA (05/22/2020 9:18 AM CORRECTIONAL MEDICINE PHYSICIAN) HEPATITIS C AB NON-REACTI VE NON-REACT JODIE [facility] SIGNAL TO CUTOFF 0.03 <[address] [facility] Comment: HCV antibody was non-reactive. There is no laboratory evidence of HCV infection. In most cases, no further action is required. However, if recent HCV exposure is suspected, a test for HCV RNA (test code 20149) is suggested. For additional information please refer to http://education.Giveo/faq/IJO63q5 (This link is being provided for informational/ educational purposes only.) 05/22/2020 9:18 AM CORRECTIONAL MEDICINE PHYSICIAN 05/22/2020 9:21 AM CORRECTIONAL MEDICINE PHYSICIAN Narrative [facility] - 05/28/2020 8:27 PM CORRECTIONAL MEDICINE PHYSICIAN FASTING:YES FASTING: YES Raul Hsu DO LABORATORY Final Re sult [facility] [address] [phone] from Last 3 Months or Most Recently Relevant to Health Maintenance Insurance [employer] Care Teams Supervisor Of Operations Relationship Specialty Start Date End Date Raul Hsu DO [address] [place] [id number] PCP - General FAMILY PRACTICE 05/21/20
== END 2025-03-22 15:13 | disposition home or self-care (01) ==
PROVIDERS: PCP Student in an Organized Health Care Education/Training Program; Visit Provider Obstetrics & Gynecology Gynecology
DX: Z12.31 Encounter for screening mammogram for malignant neoplasm of breast (principal)
CPT/HCPCS: 77063; 77067